=== PATIENT | female | born 1950 | race Two or more races ===

== ENCOUNTER 2017-04-28 07:44 | Outpatient (CLI) | payer OTHER ==
[~2017-04-28] VITALS: Ht 152.4 cm; Wt 66.2 kg
[~2017-04-28 07:44] MED LIST: CLONAZEPAM1 MG PO; CRESTOR10 MG; DOCUSATE SODIU100 MG PO; PERCOCET 5/3251 TAB PO; PNEU16DI2
== END 2017-04-28 08:00 | disposition home or self-care (01) ==
LOC: OFIC 805 07:44
DX: J31.0 Chronic rhinitis (principal); J01.80 Other acute sinusitis; H61.23 Impacted cerumen, bilateral; R05 Cough

== ENCOUNTER 2017-05-11 06:42 | Outpatient (CLI) | payer OTHER | END 2017-05-11 06:49 | disposition home or self-care (01) | LOC: LAB 06:42 | DX: I10 Essential (primary) hypertension (principal); E78.2 Mixed hyperlipidemia; N39.0 Urinary tract infection, site not specified ==

== ENCOUNTER → 2017-06-28 | Outpatient (CLI) | payer OTHER | END | disposition home or self-care (01) | LOC: RAD 501 12:07 | DX: M17.12 Unilateral primary osteoarthritis, left knee (principal); M25.552 Pain in left hip; M54.5 Low back pain ==

== ENCOUNTER 2017-07-13 07:00 | Outpatient (CLI) | payer OTHER | END 2017-07-13 07:13 | disposition home or self-care (01) | LOC: LAB 07:00 | DX: N19 Unspecified kidney failure (principal); D64.89 Other specified anemias; E55.9 Vitamin D deficiency, unspecified; N39.0 Urinary tract infection, site not specified; E03.8 Other specified hypothyroidism; E78.4 Other hyperlipidemia ==

== ENCOUNTER → 2017-07-18 | Outpatient (CLI) | payer OTHER | END | disposition home or self-care (01) | LOC: RAD 09:11 | DX: Z76.89 Persons encountering health services in other specified circumstances (principal); M79.652 Pain in left thigh; M79.605 Pain in left leg ==

== ENCOUNTER → 2017-07-18 | Outpatient (CLI) | payer OTHER | END | disposition home or self-care (01) | LOC: LAB 09:00 | DX: B95.62 Methicillin resistant Staphylococcus aureus infection as the cause of diseases classified elsewhere (principal) ==

== ENCOUNTER 2020-10-15 04:39 | Inpatient (IN) | payer OTHER ==
[~2020-10-15] VITALS: Wt 5.0 kg
[~2020-10-15 04:39] MED LIST changes: +SIMVASTA PO; +TOPROL XL25 M1 PO
== END 2020-10-16 11:06 | disposition home or self-care (01) | DRG 419 ==
LOC: CIR.AMB 04:39 → SURG 11:17 → O/R 11:17 → SURG 11:29
PROVIDERS: ADMIT Specialist; ATTEND Specialist
PROC: BF522Z0 Other Imaging of Gallbladder using Fluorescing Agent, Intraoperative (ICD-10-PCS; 2020-10-15)
PROC: 0FT44ZZ Resection of Gallbladder, Percutaneous Endoscopic Approach (ICD-10-PCS; principal; 2020-10-15 08:45)
DX: K80.10 Calculus of gallbladder with chronic cholecystitis without obstruction (principal)

== ENCOUNTER 2022-02-10 09:40 | Emergency (ER) | payer OTHER ==
[~2022-02-10] VITALS: Ht 152.4 cm; Wt 63.5 kg
== END 2022-02-10 12:24 | disposition home or self-care (01) ==
LOC: ER 09:40
DX: S79.912A Unspecified injury of left hip, initial encounter (principal); W19.XXXA Unspecified fall, initial encounter; Y93.9 Activity, unspecified; Y92.9 Unspecified place or not applicable; I10 Essential (primary) hypertension; Z88.8 Allergy status to other drugs, medicaments and biological substances

== ENCOUNTER 2022-08-15 08:45 | Emergency (ER) | payer OTHER ==
[~2022-08-15] VITALS: Ht 152.4 cm; Wt 63.5 kg
== END 2022-08-15 12:34 | disposition home or self-care (01) ==
LOC: ER 08:45
DX: J02.9 Acute pharyngitis, unspecified (principal); I10 Essential (primary) hypertension; Z88.8 Allergy status to other drugs, medicaments and biological substances; Z20.822 Contact with and (suspected) exposure to COVID-19